=== PATIENT | male | born 1985 | race Caucasian/White ===

== ENCOUNTER 2020-05-01 02:30 | Emergency (ER) | payer MEDICAID ==
[~2020-05-01] VITALS: Ht 182.9 cm; Wt 91.6 kg
[2020-05-01 02:33] VITALS: BP 125/76
[2020-05-01] MEDS ORDERED: KETOROLAC 30 MG/1 ML IM ONE (03:00)
[2020-05-01] MEDS ORDERED: AMOXICILLIN/CLAV 875-125MG TABLET PO ONE (03:00)
[2020-05-01] MEDS ORDERED: AMOXICILLIN/CLAV 875-125MG TABLET ONE (03:17)
[2020-05-01] MEDS ORDERED: KETOROLAC 30 MG/1 ML ONE (03:17)
--- NOTE | 2020-05-01 03:29 | NUR ---
TASK RN: PT REFUSES RABIES VACCINATION. I DISCUSSED IN DEPTH THE RISKS AND BENEFITS OF RECIEVING VS. NOT RECIEVING VACCINATION AND I ASNWERED ALL OF HIS QUESTIONS REGARDING VACCINE FOR RABIES. I ENCOURAGED PT TO RECIEVE VACCINE AND PT DECLINES VACCINATION.
[2020-05-01] MEDS ORDERED: RABIES VACCINE /PF 2.5 UNITS IM-VACC ONE (03:30)
[2020-05-01] MEDS ORDERED: RABIES IMMUNE GLOBULIN/PF 150 UNITS/ML, 2ML IM ONE (03:30)
--- NOTE | 2020-05-01 03:35 | NUR ---
spoke with pt again about the importance of receiving the vaccine. Pt still refusing vaccine.
[2020-05-01] MEDS ORDERED: LIDOCAINE 1%, 10ML INFIL ONE (04:00)
== END 2020-05-01 04:12 | disposition home or self-care (01) ==
LOC: ED 03:39
DX: S51.851A Open bite of right forearm, initial encounter (principal); F17.210 Nicotine dependence, cigarettes, uncomplicated; W54.0XXA Bitten by dog, initial encounter; Y93.89 Activity, other specified; Y92.488 Other paved roadways as the place of occurrence of the external cause; Y99.8 Other external cause status
CPT/HCPCS: 73090; 96372; 99283; 99406; J1885